=== PATIENT | female | born 1960 | race Caucasian/White ===

== ENCOUNTER 2022-12-27 09:50 | Emergency (ER) | payer OTHER, SELFPAY ==
[2022-12-27 09:55] VITALS: BP 162/103; PULSE 97; RESP 20; TEMP 36.1; O2SAT 96; BMI 31.3
--- NOTE | 2022-12-27 10:00 | DI.RAD.S_ITS ---
PROCEDURE: XR HAND RT MIN 3V INDICATIONS: dog bite TECHNIQUE: 3 views of the hand(s) acquired. COMPARISON: None. FINDINGS: Bones: No fractures or dislocations. Carpal bones are normally aligned. No suspicious bony lesions. Soft tissues: No suspicious soft tissue calcifications. No radiopaque foreign body. Question skin laceration at the level of the 1st MCP joint. IMPRESSION: No acute bony abnormality. Dictated by: Jim Baer M.D. on 12/27/2022 at 10:20 Approved by: Jim Baer M.D. on 12/27/2022 at 10:23
--- NOTE | 2022-12-27 10:29 | ED.ANIMALBIT ---
HPI - Animal Bite <Leann Triana DO - Last Filed: 12/27/22 19:16> General Chief Complaint: Animal Bite Stated Complaint: bit by dog Time Seen by Provider: 12/27/22 10:00 Source: patient Mode of arrival: Ambulatory Limitations: no limitations History of Present Illness HPI narrative: This is a 62-year-old female with history of hypertension, patient had dog bite to her right hand over the dorsum of the thumb. Patient states her dog was agitated by another dog that was present was on a short least and was stopping it is teeth and accidentally got her hand. Patient denies numbness or tingling has full range of motion. Does have pain area of injury. Patient is unsure if her tetanus has been updated in the last 5 years. Denies any other injuries. Patient is allergic to sulfa states she did have a reaction to amoxicillin in the past where she developed hives. Patient denies tobacco, no regular alcohol, no illicit. Patient's bitten by her own personal dog who she states shots are up-to-date. Related Data Previous Rx's Medication Instructions Recorded clindamycin HCl 300 mg capsule 300 mg PO QID 5 days #20 caps 12/27/22 doxycycline hyclate 100 mg capsule 100 mg PO BID 5 days #10 caps 12/27/22 hydrocodone 5 mg-acetaminophen 325 1 tab PO Q6H PRN pain (scale score 12/27/22 mg tablet 7-10) #7 tabs Allergies Allergy/AdvReac Type Severity Reaction Status Date / Time Sulfa (Sulfonamide AdvReac Verified 12/27/22 09:58 Antibiotics) Review of Systems <Leann Triana DO - Last Filed: 12/27/22 19:16> Review of Systems ROS Unobtainable: All systems reviewed & are unremarkable except as noted in HPI and below Patient History <Leann Triana DO - Last Filed: 12/27/22 19:16> Social History Smoking Status: Never smoker Smoking Status: Never smoker alcohol intake frequency: holidays/special occasions only Substance Use Type: does not use Exam <Leann Triana DO - Last Filed: 12/27/22 19:16> Narrative Exam Narrative: GENERAL: Alert and oriented x three, female in mild distress. HEENT: Head normocephalic, atraumatic, EOMI, pupils reactive, face symmetric, moist mucous membranes NECK: Supple, full range of motion CARDIOVASCULAR: Regular rate and rhythm without murmurs, rubs or gallops. RESPIRATORY: Breath sounds equal bilaterally, no wheezes rales or rhonchi. ABDOMEN: Soft, nontender. Normoactive bowel sounds all 4 quadrants. No guarding or rebound, rigidity, no mass EXTREMITIES: Normal range of motion, no clubbing or edema. Neurovascularly intact. Patient has 3 cm gapped laceration that gapes about a cm wide over the soft tissue on the dorsum of the 1st metacarpal of the right hand. No obvious bone is exposed, there is some soft tissue exposure. No clear tendon involvement and fascia appears intact. Patient has full flexion-extension, CATH LAB TECH abduction of all 5 fingers can make okay sign and full range of motion of the thumb. Cap refill less than 2 seconds in all 5 fingers. Normal sensation throughout all 5 fingers. No other injuries appreciated. NEUROLOGICAL: Cranial nerves II through XII grossly intact. Moving all extremities SKIN: Warm, dry, no petechiae, no rashes or lesions. Initial Vital Signs Initial Vital Signs: Vital Signs Temperature 96.9 F L 12/27/22 09:55 Pulse Rate 97 H 12/27/22 09:55 Respiratory Rate 20 12/27/22 09:55 Blood Pressure 162/103 H 12/27/22 09:55 Pulse Oximetry 96 12/27/22 09:55 Oxygen Delivery Method Room Air 12/27/22 09:55 <Rani Lott PA-C - Last Filed: 12/27/22 11:54> Initial Vital Signs Initial Vital Signs: Vital Signs Temperature 96.9 F L 12/27/22 09:55 Pulse Rate 97 H 12/27/22 09:55 Respiratory Rate 20 12/27/22 09:55 Blood Pressure 162/103 H 12/27/22 09:55 Pulse Oximetry 96 12/27/22 09:55 Oxygen Delivery Method Room Air 12/27/22 09:55 <Rani Lott PA-C - Last Filed: 12/27/22 11:54> Laceration Repair Laceration 1: Time of procedure: 11:35 Site: hand (right) Size (cm): 3 Amount of anesthesia used (mL): 1 Skin layer closed with: nylon Skin layer suture size: 5-0 Number of sutures: 3 Technique: simple, interrupted Course <Leann Triana DO - Last Filed: 12/27/22 19:16> Orders Ordered: Discontinued Medications Acetaminophen (Acetaminophen 325 Mg Tablet) 650 mg PO NOW ONE Stop: 12/27/22 10:01 Last Admin: 12/27/22 10:28 Dose: Not Given Documented By: OW Hydrocodone Bitart/Acetaminophen (Hydrocodone/Acet 5/325 Tablet) 1 tab PO NOW ONE Stop: 12/27/22 10:28 Last Admin: 12/27/22 10:33 Dose: 1 tab Documented By: OW Diphtheria/Tetanus/Acell Pertussis (Tet,Diph,Pertuss(Acell),Vac/Pf 0.5 Ml Syringe) 0.5 ml IM .ONCE ONE Stop: 12/27/22 10:58 Last Admin: 12/27/22 11:17 Dose: 0.5 ml Documented By: GENNY Lidocaine HCl (Lidocaine 1% (Pf) 5 Ml) 1 ml SUBCUT NOW ONE Stop: 12/27/22 11:14 Last Admin: 12/27/22 11:20 Dose: 1 ml Documented By: MARIO Sterile Water (Water For Irrigation 500 Ml Irrig.Soln) 500 ml IRR NOW ONE Stop: 12/27/22 11:14 Vital Signs Vital signs: Vital Signs - 8 hr 12/27/22 11:25 12/27/22 12:04 Pulse Rate 71 67 Respiratory Rate 14 Blood Pressure 144/91 H Pulse Oximetry 97 96 Oxygen Delivery Method Room Air Room Air <Rani Lott PA-C - Last Filed: 12/27/22 11:54> Orders Ordered: Discontinued Medications Acetaminophen (Acetaminophen 325 Mg Tablet) 650 mg PO NOW ONE Stop: 12/27/22 10:01 Last Admin: 12/27/22 10:28 Dose: Not Given Documented By: OW Hydrocodone Bitart/Acetaminophen (Hydrocodone/Acet 5/325 Tablet) 1 tab PO NOW ONE Stop: 12/27/22 10:28 Last Admin: 12/27/22 10:33 Dose: 1 tab Documented By: OW Diphtheria/Tetanus/Acell Pertussis (Tet,Diph,Pertuss(Acell),Vac/Pf 0.5 Ml Syringe) 0.5 ml IM .ONCE ONE Stop: 12/27/22 10:58 Last Admin: 12/27/22 11:17 Dose: 0.5 ml Documented By: GENNY Lidocaine HCl (Lidocaine 1% (Pf) 5 Ml) 1 ml SUBCUT NOW ONE Stop: 12/27/22 11:14 Last Admin: 12/27/22 11:20 Dose: 1 ml Documented By: MARIO Sterile Water (Water For Irrigation 500 Ml Irrig.Soln) 500 ml IRR NOW ONE Stop: 12/27/22 11:14 Vital Signs Vital signs: Vital Signs - 8 hr 12/27/22 11:25 12/27/22 12:04 Pulse Rate 71 67 Respiratory Rate 14 Blood Pressure 144/91 H Pulse Oximetry 97 96 Oxygen Delivery Method Room Air Room Air MDM - Animal Bite <Leann Triana DO - Last Filed: 12/27/22 19:16> Imaging Data Extremity x-ray #1: Radiologist's Impression: Shi Schwartz??62??F??1960 ? Allergy/Adv: Sulfa (Sulfonamide Antibiotics) (More??) Close Hand X-Ray (Signed) Jim Baer - 12/27/22 Launch?[place] [address] XRay Report Signed Patient: Shi Schwartz MR#: [id number] : 1960 Acct:[id number] Age/Sex: 62 / F Date of Service: 12/27/22 Loc: ED Accession Number: [id number] ?? Procedure: XR hand RT min 3V Ordering Provider: Leann Triana D.O. PROCEDURE:? XR HAND RT MIN 3V ? INDICATIONS:? dog bite ? TECHNIQUE:? 3 views of the hand(s) acquired.? ? COMPARISON:? None. ? FINDINGS:? ? Bones:? No fractures or dislocations.? Carpal bones are normally aligned.? No suspicious bony lesions.? ? Soft tissues:? No suspicious soft tissue calcifications.? No radiopaque foreign body.? Question skin laceration at the level of the 1st MCP joint.? ? ? IMPRESSION:? No acute bony abnormality. ? ? Dictated by: Jim Baer M.D. on 12/27/2022 at 10:20 ? ? Approved by: Jim Baer M.D. on 12/27/2022 at 10:23?? [facility] Narrative Medical decision making narrative: 62-year-old female presents with complaint of dog bite to the right hand which is patient's dominant hand. She has a large laceration that does require repair at this time. Discussed increased risk for infection but will likely have difficulty healing if not repaired. Discussed with patient will update tetanus, numbing of the injury, irrigation, suture repair, antibiotic coverage likely with clindamycin and doxycycline as patient is allergic to sulfa as well as on amoxicillin. Strict return precautions. Repair performed by RADHA Lott. <Rani Lott PA-C - Last Filed: 12/27/22 11:54> [facility] Narrative Medical decision making narrative: 62-year-old female presents with complaint of dog bite to the right hand which is patient's dominant hand. She has a large laceration that does require repair at this time. Discussed increased risk for infection but will likely have difficulty healing if not repaired. Discussed with patient will update tetanus, numbing of the injury, irrigation, suture repair, antibiotic coverage likely with clindamycin and doxycycline as patient is allergic to sulfa as well as on amoxicillin. Strict return precautions. Discharge Plan Departure Patient Disposition: Home Clinical Impression: Laceration of right thumb Instructions: DI for Laceration Repair -- Finger Activity Restrictions/Additional Instructions: Take antibiotics until completed. You may take Central 1 tablets every 6 hours as needed for severe pain Wound Care: Keep wound(s) clean and dry. Wash daily with soap and water only. Do not use over the counter products (alcohol or peroxide)on the wounds unless instructed by a physician. You can use triple antibiotic ointment to the affected area. If wound condition worsens (increased/expanding redness, developing fluid blisters, or worsening pain), either contact your doctor for an urgent re-assessment , or return to the Emergency Department. Return to the Emergency Department for any new or worsening symptoms. Return to the ED, urgent care, or visit a primary care doctor for removal of sutures in 7-10 days. Return if fever greater than 100.4 Fahrenheit, increased swelling, increasing pain or worsening symptoms such as increased discharge or spreading redness, weakness, numbness, loss of sensation or other new or concerning changes. Prescriptions: New doxycycline hyclate 100 mg capsule 100 mg PO BID 5 Days Qty: 10 0RF clindamycin HCl 300 mg capsule 300 mg PO QID 5 Days Qty: 20 0RF hydrocodone-acetaminophen 5-325 mg tablet 1 tab PO Q6H PRN (Reason: pain (scale score 7-10)) Qty: 7 0RF Referrals: Miscellaneous,Doctor, MD [Primary Care Provider] - Stand Alone Forms: Patient Portal/API
[2022-12-27] MEDS: HYDROCODONE/ACET 5/325 TABLET 1 TAB PO (10:33)
[2022-12-27] MEDS: TET,DIPH,PERTUSS(ACELL),VAC/PF 0.5 ML SYRINGE IM (11:17)
[2022-12-27] MEDS: LIDOCAINE 1% (PF) 5 ML 1 ML SUBCUT (11:20)
[2022-12-27 11:25] VITALS: PULSE 71; O2SAT 97
[2022-12-27 12:04] VITALS: BP 144/91; PULSE 67; RESP 14; O2SAT 96
== END 2022-12-27 12:06 | disposition home or self-care (01) ==
PROVIDERS: Emergency Provider Physician Assistant
DX: S61.451A Open bite of right hand, initial encounter (principal); W54.0XXA Bitten by dog, initial encounter; Z23 Encounter for immunization
CPT/HCPCS: 12002; 73130; 90471; 99283; 90715

== ENCOUNTER → 2024-09-24 07:14 | Outpatient (CLI) | payer OTHER, SELFPAY ==
[2024-09-24 08:57] LABS: Free T4, Direct Thyroxine 0.95 ng/dL (0.78-2.19)
[2024-09-24 09:12] LABS: Thyroid Stimulating Hormone 0.115 uIU/mL (0.47-4.68)
== END ==
PROVIDERS: PCP Family Medicine; Referring Provider Internal Medicine Cardiovascular Disease; Visit Provider Internal Medicine Cardiovascular Disease
DX: E78.5 Hyperlipidemia, unspecified (principal); L65.9 Nonscarring hair loss, unspecified
CPT/HCPCS: 36415; 80061; 83704; 84439; 84443

== ENCOUNTER → 2024-09-30 10:55 | Outpatient (CLI) | payer OTHER, SELFPAY ==
--- NOTE | 2024-09-30 11:01 | DI.RAD.S_ITS ---
PROCEDURE: XR KNEE LT 1TO2V INDICATIONS: KNEE PAIN TECHNIQUE: 2 views of the knee were acquired. COMPARISON: None. FINDINGS: Bones: No fractures or dislocations. No suspicious bony lesions. No significant osteophytosis. Soft tissues: No joint effusion. No suspicious soft tissue calcifications. IMPRESSION: No acute bony abnormality or significant effusion. No significant degenerative change. Dictated by: Seymour Cortes M.D. on 09/30/2024 at 15:06 Approved by: Seymour Cortes M.D. on 09/30/2024 at 15:06
--- NOTE | 2024-09-30 11:01 | DI.RAD.S_ITS ---
PROCEDURE: XR KNEE RT 1TO2V INDICATIONS: KNEE PAIN TECHNIQUE: 2 views of the knee were acquired. COMPARISON: None. FINDINGS: Bones: No fractures or dislocations. No suspicious bony lesions. Tricompartmental joint space narrowing with associated osteophytosis. Soft tissues: Small joint effusion. No suspicious soft tissue calcifications. IMPRESSION: [id number] tricompartmental osteoarthritis. Kellgren-Pablo Grade 2. Dictated by: Seymour Cortes M.D. on 09/30/2024 at 15:07 Approved by: Seymour Cortes M.D. on 09/30/2024 at 15:07
== END ==
PROVIDERS: PCP Family Medicine; Referring Provider Family Medicine; Visit Provider Family Medicine
DX: M17.11 Unilateral primary osteoarthritis, right knee; M25.461 Effusion, right knee; M25.561 Pain in right knee; M25.562 Pain in left knee; G89.29 Other chronic pain
CPT/HCPCS: 73560

== ENCOUNTER → 2025-02-23 14:45 | Outpatient (CLI) | payer MEDICARE, OTHER, SELFPAY ==
--- NOTE | 2025-02-23 14:47 | DI.RAD.S_ITS ---
PROCEDURE: XR DEXA AXIAL SKELETON INDICATIONS: POSTMENOPASUAL COMPARISON: None. FINDINGS: Lumbar Spine: Bone mineral density is 0 point 949 g/cm2, T score -0.6, normal. Left Femoral Neck: Bone mineral density is 0.729 g/cm2, T score -1.1. Left Hip: Bone mineral density is 0.909 g/cm2, T score -0.3, osteopenia by femoral neck measurement. Fracture Risk Calculation (when applicable): 10-year fracture risk of a major osteoporotic fracture 15 percent and of a hip fracture 0.6 percent. (T score greater or equal to -1.0 to: NORMAL) (T score from -1.1 to -2.4: OSTEOPENIA) (T score less than or equal to -2.5: OSTEOPOROSIS) IMPRESSION: Osteopenia Follow-up guidelines as follows: Osteoporosis: Consider a repeat DEXA and Vertebral Fracture Assessment (VFA) exam in 2 years or sooner if medically necessary, to reassess this patient's status. Osteopenia: Consider a repeat DEXA in 2-3 years to reassess this patient's status, or if there is a new clinical indication. Normal: Consider a repeat DEXA in 5 years or sooner, or if there is a new clinical indication. All treatment decisions require clinical judgment and consideration of individual patient factors, including patient preferences, comorbidities, previous drug use, risk factors not captured in the FRAX model (e.g., frailty, falls, vitamin D deficiency, increased bone turnover, interval significant decline in bone density ) and possible under- or over-estimation of fracture risk by FRAX. In addition, the NOF Guide recommends that FDA-approved medical therapies be considered in postmenopausal women and men age >= 50 years with a: * Hip or vertebral (clinical or morphometric) fracture * T-score of <=-2.5 at the spine or hip * Ten-year fracture probability by FRAX of >= 3% for hip fracture or >=20% for major osteoporotic fracture. Dictated by: Nnamdi Lara M.D. on 02/24/2025 at 13:17 Approved by: Nnamdi Lara M.D. on 02/24/2025 at 13:22
== END ==
LOC: RAD 14:47
PROVIDERS: PCP Physician Assistant; Referring Provider Physician Assistant; Visit Provider Physician Assistant
DX: M85.852 Other specified disorders of bone density and structure, left thigh (principal); Z78.0 Asymptomatic menopausal state
CPT/HCPCS: 77080